=== PATIENT | male | born 1960 | race Caucasian/White ===

== ENCOUNTER 2016-09-17 12:21 | Day surgery (SDC) | payer BC ==
[2016-09-14 07:56] LABS: BASOPHILS 0.3 %; BASOPHILS ABSOLUTE 0.02 10/3/uL (0.0-0.16); EOSINOPHILS 3.3 %; EOSINOPHILS ABSOLUTE 0.19 10/3/uL (0.0-0.53); HEMATOCRIT 42.4 % (40.0-51.0); IMMATURE GRANULOCYTES 0.3 %; IMMATURE GRANULOCYTES ABSOLUTE 0.02 10/3/uL (0.0-0.11); LYMPHOCYTES 21.9 %; LYMPHOCYTES ABSOLUTE 1.27 10/3/uL (0.67-4.30); MEAN CORPUS HGB CONC 35.4 g/dL (32.0-36.0); MEAN CORPUSCULAR HEMOGLOB 31.3 pg (26.0-34.0); MEAN CORPUSCULAR VOLUME 88.3 fL (80-100); MEAN PLATELET VOLUME 9.2 fL (9.2-13.0); MONOCYTES 7.4 %; MONOCYTES ABSOLUTE 0.43 10/3/uL (0.21-1.20); NEUTROPHILS 66.8 %; NEUTROPHILS ABSOLUTE 3.88 10/3/uL (2.02-8.40); PLATELET COUNT 114 10/3/uL (150-400); RBC DISTRIBUTION WIDTH 12.6 % (12.0-16.0); WHITE BLOOD CELLS 5.8 10/3/uL (4.5-10.5)
[2016-09-14 07:57] LABS: MANUAL DIFF NO %
[2016-09-14 08:10] LABS: BUN (BLOOD UREA NITROGEN) 21 MG/DL (6-23); CALCIUM, SERUM 9.2 MG/DL (8.5-10.4); CHLORIDE, SERUM 105 MMOL/L (96-112); CO2 (CARBON DIOXIDE) 29 MMOL/L (24-34); CREATININE 0.99 MG/DL (0.70-1.30); GFR AFRICAN AMERICAN 97 ML/MIN (>=60); GFR NON AFRICAN AMERICAN 84 ML/MIN (>=60); GLUCOSE, SERUM 106 MG/DL (60-99); POTASSIUM, SERUM 3.9 MMOL/L (3.5-5.3); SODIUM, SERUM 139 MMOL/L (135-148)
--- NOTE | ~2016-09-17 | OP ---
Record Of Operation [facility] [address] [place]. [address] NAME: LEELA STEVEN JR : 56 STATUS : REG [facility] PAT#: [id number] AGE: 56 ADM/REG DATE : 09/17/16 MR#: [id number] REPORT SERV DATE: 09/17/16 DICTATED BY: TORIN JAIN III DATE: 09/17/16 REPORT STATUS : Draft TRANSCRIBED BY: MODL DATE: 09/17/16 DATE OF PROCEDURE: 09/17/2016 PROCEDURE: Ultrasound-guided prostate biopsy. PREOPERATIVE DIAGNOSIS: Elevated PSA. POSTOPERATIVE DIAGNOSIS: Elevated PSA. ANESTHESIA: MAC. PROCEDURE IN DETAIL: The patient was placed in left lateral position. MAC anesthesia was induced. Digital exam was done. There was no induration, no nodularity. The volume was approximately 56 mL. There was some heterogeneity in the right base laterally. No other lesions were noted. Four biopsies were taken from the base, midgland, and three from each apex in a laterally directed fashion, capturing both transition zone and peripheral zone. The aforementioned irregularity was biopsied x2. He had some bleeding from the rectum and we put a moist Gelfoam with epinephrine on it in the rectum to assist with clotting. The patient tolerated the procedure well. He will be taken to recovery room. OB/MODL Torin Jain III, M.D. / [id number] CC: Eladio Carrillo III, JOEL
[~2016-09-17 12:21] MED LIST: AVAPRO75 PO; CALTRA600D PO; CO Q-10100 MG PO; LEVOTHYROXIN50 MCG PO; MULTIVIT/MIN PO; P5 PO; PRAVACHOL40 MG PO; PROTONIX PO
[2016-09-17 12:49] LABS: ASCORBIC ACID (UR NOT ORDER) NEG (NEG); BILIRUBIN, URINE NEGATIVE (NEG); KETONE, URINE NEGATIVE (NEG); LEUKOCYTE ESTERASE(NOT OR NEG (NEG); WBC (NOT ORDERED) (RFLEX) 1 (0-5)
== END 2016-09-17 17:30 | disposition home or self-care (01) ==
LOC: SDC 12:21
PROVIDERS: Urology
PROC: 0VB03ZX Excision of Prostate, Percutaneous Approach, Diagnostic (ICD-10-PCS; principal; 2016-09-17 14:30)
DX: R97.20 Elevated prostate specific antigen [PSA] (principal); D69.3 Immune thrombocytopenic purpura; I10 Essential (primary) hypertension; E03.9 Hypothyroidism, unspecified; E78.5 Hyperlipidemia, unspecified; Z79.52 Long term (current) use of systemic steroids; Z79.899 Other long term (current) drug therapy
CPT/HCPCS: 76872; 76942; 80048; 81001; 85025; 88305; 93005; J1580; J1720; J3010